=== PATIENT | female | born 1990 | race Caucasian/White ===

== ENCOUNTER → 2017-09-10 | Outpatient (CLI) | payer OTHER ==
--- NOTE | 2017-09-10 10:56 | USB ---
Reason for exam: clinical finding. Physical Findings: Nurse Summary: Patient complains of bilateral breast pain x 2 weeks, 0.5cm nodule right breast at 11 o'clock and left breast at 5 o'clock (nurse mj). US Breast Limited BILAT Right breast ultrasound demonstrates a 0.6 x 0.3 x 0.4cm oval, cystic lesion at 10 o'clock, a 0.3 x 0.2 x 0.2cm oval lesion too small to characterize at 11 o'clock and ductal ectasia at the posterior nipple. Left breast ultrasound demonstrates a 0.3 x 0.4 x 0.2cm oval lesion too small to characterize at 5 o'clock, a 0.2 x 0.3 x 0.2cm oval lesion too small to characterize at 9 o'clock and a 0.4 x 0.6 x 0.2cm oval, cystic cluster with calcification at 3 o'clock. These results were verbally communicated with the patient and result sheet given to the patient on 09/10/17. ASSESSMENT: Benign, BI-RAD 2 RECOMMENDATION: Routine screening mammogram of both breasts at age 39. Or sooner if clinically indicated. Manage patient on a clinical basis.
== END | disposition home or self-care (01) ==
LOC: RADUSWWP 08:30
PROVIDERS: ATTEND Family Medicine
DX: N60.02 Solitary cyst of left breast (principal)

== ENCOUNTER → 2022-01-02 | Outpatient (CLI) | payer OTHER ==
[2022-01-02 18:56] LABS: Basophils # (A) 0.04 X 10*3/uL (0.00-0.10); Basophils % (A) 0.5 %; Eosinophils # (A) 0.16 X 10*3/uL (0.04-0.35); Eosinophils % (A) 1.9 %; HCT 45.7 % (37.2-46.3); HGB 14.5 g/dL (12.0-15.0); Immature Grans, Automated 0.2 %; Lymphocytes # (A) 2.62 X 10*3/uL (0.90-5.00); Lymphocytes % (A) 30.8 %; MCH 28.9 pg (27.0-32.0); MCHC 31.7 g/dL (32.0-37.0); MCV 91.2 fL (80.0-97.0); Mean Platelet Volume 11.8 fL (9.5-12.2); Monocytes # (A) 0.58 X 10*3/uL (0.20-1.00); Monocytes % (A) 6.8 %; NRBC Per 100 WBC 0 /100 WBCS (0.0-0.0); Neutrophils # (A) 5.09 X 10*3/uL (1.80-7.70); Neutrophils % (A) 59.8 %; Platelet Count 264 X 10*3/uL (140-440); RBC 5.01 X 10*6/uL (4.10-5.20); RDW 12.2 % (11.5-14.5); WBC 8.51 X 10*3/uL (4.50-10.00)
== END | disposition home or self-care (01) ==
LOC: LABPAT 13:00
PROVIDERS: ATTEND Obstetrics & Gynecology Obstetrics
DX: Z30.2 Encounter for sterilization (principal)
CPT/HCPCS: 85025

== ENCOUNTER 2022-01-22 06:55 | Day surgery (SDC) | payer OTHER ==
[2022-01-18 10:44] VITALS: BMI 26.9
[~2022-01-22 06:55] MED LIST: Pre Op ABX Message 1 EACH MISC MISCELLANE ONE
[2022-01-22] MEDS ORDERED: LACTATED RINGERS 1,000 ML IV SCH (07:15)
[2022-01-22] MEDS ORDERED: SCOPOLAMINE 1 MG/72 HR PATCH TRANSDERM ONE (07:15)
[2022-01-22] MEDS ORDERED: LIDOCAINE 1% (10MG/ML) FOR IV START INTRADERMA PRN (07:15)
[2022-01-22] MEDS ORDERED: DEXAMETHASONE SOD PHOSPHATE 4 MG/ML 1 ML VIAL IV ONE (07:15)
[2022-01-22] MEDS ORDERED: ONDANSETRON 4 MG/2 ML VIAL IVP ONE (07:15)
[2022-01-22 07:31] VITALS: RESP 16; TEMP 97.5
[2022-01-22] MEDS ORDERED: NEOSTIGMINE 1 MG/ML 10 ML VIAL ONE (08:19)
[2022-01-22] MEDS ORDERED: GLYCOPYRROLATE 0.2 MG/ML 2 ML VIAL ONE (08:19)
[2022-01-22] MEDS ORDERED: HYDROmorphone (PF) 1 MG/ML ONE (08:19)
[2022-01-22] MEDS ORDERED: MIDAZOLAM 2 MG/2 ML VIAL ONE (08:19)
[2022-01-22] MEDS ORDERED: ROCURONIUM 10 MG/ML (5 ML VIAL) IV ONE (08:19)
[2022-01-22] MEDS ORDERED: SUCCINYLCHOLINE CHLORIDE 200 MG/10 ML VIAL IV ONE (08:19)
[2022-01-22] MEDS ORDERED: LIDOCAINE 2% INJ 20 MG/ML (2 ML VIAL) ONE (08:19)
[2022-01-22] MEDS ORDERED: fentaNYL (PF) 50 MCG/ML 2 ML AMP ONE (08:19)
[2022-01-22] MEDS ORDERED: PROPOFOL 10 MG/ML 20 ML VIAL IV ONE (08:19)
--- NOTE | 2022-01-22 08:19 | P.HPOB ---
History of Present Illness H&P Date: 01/22/22 Chief Complaint: Family planning, undesired fertility This is a 31-year-old 0 that request tubal ligation. Patient is currently using Depo-Provera for contraception. She is amenorrheic with Depo- Provera. She desires permanent sterilization. Review of Systems Constitutional: Denies chills, Denies fatigue, Denies fever Ears, nose, mouth and throat: Denies headache Cardiovascular: Denies leg edema Respiratory: Denies dyspnea Gastrointestinal: Denies nausea, Denies vomiting Genitourinary: Denies Past Medical History Past Medical History: No Reported History History of Any Multi-Drug Resistant Organisms: None Reported Past Surgical History: No Surgical Hx Reported Past Anesthesia/Blood Transfusion Reactions: No Reported Reaction Additional Past Anesthesia/Blood Transfusion Reaction / Comment(s): NO PRIOR SX HX Smoking Status: Never smoker - Past Family History Mother Family Medical History: No Reported History Medications and Allergies Home Medications Medication Instructions Recorded Confirmed Type medroxyPROGESTERone [Depo-Provera] 150 mg IM DIRECTED 01/22/22 01/22/22 History Allergies Allergy/AdvReac Type Severity Reaction Status Date / Time No Known Allergies Allergy Verified 01/22/22 07:20 Exam Osteopathic Statement: *. No significant issues noted on an osteopathic structural exam other than those noted in the History and Physical/Consult. Vital Signs Temp Pulse Resp BP Pulse Ox 01/22/22 07:29 97.5 F L 91 16 133/87 97 Intake and Output 01/21/22 01/22/22 01/22/22 22:59 06:59 14:59 Other: Weight 79.5 kg Targeted physical exam is performed in this date and utilization reviewer a well-nourished well-developed non female in no acute distress, breathing is noted to nonlabored, heart has a regular rate and rhythm, abdomen is soft and nontender, genitourinary exam is deferred. Assessment and Plan (1) Family planning Current Visit: Yes Status: Acute Code(s): Z30.09 - ENCOUNTER FOR OTH GENERAL CNSL AND ADVICE ON CONTRACEPTION SNOMED Code(s): 196936429 Plan: 31-year-old 0 that presents for software testing specialist scope tubal ligation with Filshie clips. Patient is desirous of permanent sterilization. Received her is reviewed and questions are answered. Patient states understanding. [employer] pamphlet is given to patient to review in addition. We'll proceed with a software testing specialist scope tubal ligation with Filshie clips
[2022-01-22] MEDS ORDERED: LIDOCAINE URO-JET JELLY 2% 5 ML KIT ENDOTRACHE ONE ×2 (08:33)
[2022-01-22] MEDS ORDERED: BUPIVACAINE (PF) 0.25% 30 ML VIAL SQ ONE (08:33)
--- NOTE | 2022-01-22 09:03 | P.OP ---
Date of Procedure: 01/22/22 Preoperative Diagnosis: family planning, undesired fertility Postoperative Diagnosis: same Procedure(s) Performed: Computer Operator scope tubal ligation with Filshie clips Anesthesia: GETA Surgeon: Vannesa Hope Estimated Blood Loss (ml): 5 IV fluids (ml): 800 Urine output (ml): 50 Pathology: none sent Condition: stable Disposition: PACU Indications for Procedure: Patient desires permanent sterilization Operative Findings: Normal pelvic anatomy Description of Procedure: Patient was taken back to the operating suite where general anesthesia was obtained without difficulty by the anesthesia department. She is prepped and draped in normal sterile fashion in the dorsal lithotomy position. Red rubber catheter was used to drain the bladder of clear yellow urine. A Graves speculum was placed the cervix is visualized the anterior lip was grasped with a single- tooth tenaculum. The acorn uterine manipulator was advanced into the cervix as a means to me that the uterus throughout the procedure. Attention then turned the patient's abdomen where in the umbilical fold a small incision is made. The Veress needles placed through this incision and toward the abdominal cavity. On ce the Veress needle is deemed to be in the proper position with a drop of CO2 pressure with insufflation of CO2 gas CO2 insufflation was allowed to occur. Proximally 3 L of gas or used to obtain pneumoperitoneum. At this time a 5 mm trocar and sleeve is placed through the incision with the laparoscope in place toward the pneumoperitoneum. The above-noted findings are visualized. At this time and additional port sites was placed in the right mid quadrant this is a 5 mm trocar and sleeve which is placed under direct visualization. The Filshie clip applicator was then placed through the side incision the right fallopian tube is evaluated followed out to the fimbriated and grasped with the Filshie clip applicator. Complete transection of the fallopian tube was appreciated. This was then repeated on the opposite side. Pictures are taken. At this time all inserts removed from the patient's abdomen attention then turned the patient's skin incisions were closed with 4-0 Vicryl in a septic fashion Steri- Strips and sterile dressings were applied lidocaine was instilled. The tooth tenaculum was taken off of the anterior lip of the cervix a gurney to manipulate her was removed. All counts were noted be correct 2 at the end of the procedure. Patient tolerated procedure well and was taken the recovery room awake in stable condition.
[2022-01-22] MEDS ORDERED: SODIUM CHLORIDE 0.9% 1,000 ML IV ONE (09:17)
[2022-01-22] MEDS: HYDROmorphone 0.5 MG/0.5 ML SYRINGE IVP PRN ×3 (09:21→10:10)
[2022-01-22] MEDS ORDERED: diphenhydrAMINE 50 MG/ML 1 ML VIAL IVP ONE (09:22)
[2022-01-22 11:34] VITALS: BP 118/72; PULSE 80
== END 2022-01-22 11:35 | disposition home or self-care (01) ==
LOC: OR 06:55
PROVIDERS: ATTEND Obstetrics & Gynecology Obstetrics
DX: Z30.2 Encounter for sterilization (principal); Z79.3 Long term (current) use of hormonal contraceptives; K21.9 Gastro-esophageal reflux disease without esophagitis
CPT/HCPCS: 81025; 58671; J2250; J0330; J1200; J1100; J2710; J2405; J3010; J1170 ×2; J2704; J2001